=== PATIENT | female | born 1990 | race African-American/Black ===

== ENCOUNTER 2023-04-19 20:03 | Inpatient (IN) | payer MEDICAID, SELFPAY ==
--- NOTE | 2023-04-19 20:10 | PC.NURSE ---
96 Hour Hold Patient Rights have been read to patient and a copy of the same has been given to her. [employer] Carlos Rahman was present during time of reading.
[2023-04-19 20:11] VITALS: BP 129/82; PULSE 100; RESP 18; TEMP 36.3; O2SAT 99
[2023-04-19 20:13] VITALS: BMI 23.9
[2023-04-19 21:25] VITALS: BP 129/82; PULSE 100; RESP 18; TEMP 36.3; O2SAT 99
[2023-04-20 06:00] VITALS: BP 119/78; PULSE 96; RESP 18; TEMP 36.9; O2SAT 100
--- NOTE | 2023-04-20 10:28 | P.NPUHP_ITS ---
Providers/Chief Complaint Admitting Physician: Eduardo Rahman MD Chief Complaint: Psychosis HPI NPU History of Present Illness Rosibel Kwan is a 33 year old female who presented to the Emergency department of an outside hospital on a 96-hour hold secondary to her talking to her self, significant thought blocking. Delusional thoughts about things with electrical currents, endorses being watched through the TV. She was transferred to [facility] and was admitted to the neuropsychiatric unit for definitive treatment of those issues. The patient presents today reporting that she is here because she needs to clear her mind. The patient denies any psychiatric medications. She denies previous psychiatric hospitalization. She has not had outpatient services. She denies previous psychiatric medications. She denies cigarette or tobacco use. She endorses occasional alcohol use. She endorses marijuana use. She denies recent cocaine, methamphetamine, or opiate use. She denies drug rehabilitation, DUI, or drug related charges. She reports that she did not think she needed to be in the hospital, but she is on a 96-hour hold, and reports that maybe it was a misunderstanding. She reports that she has not had previous mental health issues. Otherwise she is a poor historian and seeming to struggle with just about every question asked. Outside hospital was able to speak to mother who reports regular cannabis and methamphetamine use. UDS at outside hospital positive for amphetamines and cannabis. PSYCHIATRIC HISTORY: As above. SUBSTANCE ABUSE HISTORY: As above. FAMILY HISTORY: Denied. DEVELOPMENTAL HISTORY: The patient denies any issues with her mother?s or delivery of her, to her knowledge, learned to walk and talk and met developmental milestones on time. The patient denies speech therapy, learning support, emotional support, or special education classes. PSYCHOSOCIAL HISTORY: The patient reports that her mother and father were together when she was born but did not stay together. She reports that she has two siblings, an older brother and a younger sister, who are also products of that union. She reports that her mother had a son who didn?t make it. She reports that her father had three other kids. She describes her childhood as blessed. She denies emotional, physical, or sexual abuse. She reports there was CPS involvement, and she was taken from the home twice, once for three to four years. She denies nightmares or flashbacks. She denies graduating from high school, just going to school through 7th grade. She reports that she got her GED. She endorses being heterosexual, with her longest relationship being 15 years. She has never been . She reports that she had two sons, who were not biological children, who in a house fire in 2010. She endorses being Druze. She reports she currently lives in an apartment with her mother. LEGAL HISTORY: She reports that she has been to senior living three times, the longest time being six m onths. MEDICAL HISTORY: Denied. The patient denies any known allergies to medications. She reports that she started having her periods in her teens, and they were not problematic. Meds NPU Home Medications Medication Instructions Recorded Confirmed Last Taken Type No Known Home Medications 04/19/23 04/19/23 Unknown History Allergies Allergy/AdvReac Type Severity Reaction Status Date / Time No Known Allergies Allergy Verified 04/19/23 20:13 Mental Status Exam MSE Comments: This is an overweight -Ira[place] female, in hospital scrubs, with limited grooming and eye contact. Blond wig malpositioned on head. No abnormal movements except for psychomotor retardation. Mostly cooperative with exam in mild distress. Speech was decreased rate and volume with clear pauses and thought blocking. Mood described as good; affect subdued. Thought process, disorganized. Thought content: patient denied any suicidal or homicidal ideation; there were no delusions reported but the patient was very distracted and appeared guarded; when asked about auditory or visual hallucinations, the patient responded she thinks those are blessings and abilities. Attention and concentration limited, and memory appeared unreliable, but none were formally tested. Alert and oriented times three. Insight and judgment are limited. Impulse control is limited. Vitals/I&O/Wt Last Vital Signs Temp 98.5 F 04/20/23 06:00 Pulse 96 04/20/23 06:00 Resp 18 04/20/23 06:00 BP 119/78 04/20/23 06:00 Pulse Ox 100 04/20/23 06:00 O2 Del Method Room Air 04/19/23 20:13 Weight last 48 hrs Weight 67.358 kg Weight 67.358 kg A&P Assessment and plan (1) Psychosis: (2) Methamphetamine use disorder, severe: Plan This is a 33-year-old -Ira[place] female who presents denying any issues but is unkempt, with obvious thought blocking and psychosis without any helpful history from her but UDS positive for cannabis and amphetamines and reports of addiction issues via mother at outside hospital. 1. Continue current medication. Will attempt to get her to try an antipsychotic. 2. Encourage individual, group, and milieu therapy. 3. Continue q-15-minute checks for safety. 4. Recommend sober living treatment at the highest level of care to which the patient is willing to commit. Involuntary Hold Information 96 Hour Hold: 96 Hour Involuntary Admission: Yes 96 Hour Hold Ending Date: 04/25/23 96 Hour Hold Ending Time: 20:10 Attestations NPU Medical Necessity Statement*: Inpatient hospitalization is medically necessary and the clinically appropriate intervention, at this time. We will monitor medications and make changes as indicated. Patient will be in the hospital for over two midnights. Likely length of stay is 4-6 days. Coding Level of Care Code Acute Code for Chg Fwd Diagnoses Psychosis F29 Methamphetamine use disorder, severe F15.20
[2023-04-20 14:00] VITALS: BP 117/85; PULSE 98; RESP 16; TEMP 36.6; O2SAT 99
[2023-04-20] MEDS: nicotine 2 mg Gum BUCCAL (15:32)
[2023-04-20 20:19] VITALS: RESP 16
[2023-04-21 06:00] VITALS: BP 108/69; PULSE 95; RESP 16; TEMP 36.9; O2SAT 100
[2023-04-21 14:00] VITALS: BP 102/61; PULSE 99; RESP 16; TEMP 36.8; O2SAT 98
--- NOTE | 2023-04-21 18:23 | P.NPUPN_ITS ---
Subjective NPU Subjective: Patient presented today reporting that is fine and needs no medications. She continues the hyper spiritual spin on her situation. Downplaying the methamphetamine impact on her progress. Denying that the outside hospital noted any thought disorder or any problems. Downplaying the positive drug screen. And speaking very jehovah's witness like with explanation for anything that happened as good versus evil and the fact that God will prevail. Mental Status Exam MSE Comments: This is an overweight -Singapore[place] female, in hospital scrubs, with limited grooming and eye contact. Blond wig malpositioned on head. No abnormal movements except for psychomotor retardation. Mostly cooperative with exam in mild distress. Speech was decreased rate and volume with clear pauses and thought blocking. Mood described as good; affect subdued. Thought process, disorganized. Thought content: patient denied any suicidal or homicidal ideation; there were no delusions reported but the patient was very distracted and appeared guarded; when asked about auditory or visual hallucinations, the patient responded she thinks those are blessings and abilities. Attention and concentration limited, and memory appeared unreliable, but none were formally tested. Alert and oriented times three. Insight and judgment are limited. Impulse control is limited. Vitals/I&O/Wt Last Vital Signs Temp 98.3 F 04/21/23 20:30 Pulse 103 H 04/21/23 20:30 Resp 16 04/21/23 20:30 BP 120/79 04/21/23 20:30 Pulse Ox 100 04/21/23 20:30 O2 Del Method Room Air 04/20/23 14:00 Weight last 48 hrs Weight 67.358 kg A&P Assessment and plan (1) Psychosis: (2) Methamphetamine use disorder, severe: Plan This is a 33-year-old -[place] female who presents denying any issues but is unkempt, with obvious thought blocking and psychosis without any helpful history from her but UDS positive for cannabis and amphetamines and reports of addiction issues via mother at outside hospital. 1. Continue current medication. Will attempt to get her to try an antipsychotic. 2. Encourage individual, group, and milieu therapy. 3. Continue q-15-minute checks for safety. 4. Recommend sober living treatment at the highest level of care to which the patient is willing to commit. Involuntary Hold Information 96 Hour Hold: 96 Hour Involuntary Admission: Yes 96 Hour Hold Ending Date: 04/25/23 96 Hour Hold Ending Time: 20:10 Attestations NPU Medical Necessity Statement*: Inpatient hospitalization is medically necessary and the clinically appropriate intervention, at this time. We will monitor medications and make changes as indicated. Likely length of stay is 4-6 days. Coding Level of Care Code Acute Code for Chg Fwd Diagnoses Psychosis F29 Methamphetamine use disorder, severe F15.20
[2023-04-21 20:30] VITALS: BP 120/79; PULSE 103; RESP 16; TEMP 36.8; O2SAT 100
[2023-04-22 06:00] VITALS: BP 116/77; PULSE 93; RESP 16; TEMP 36.6; O2SAT 100
[2023-04-22 14:00] VITALS: BP 115/72; PULSE 97; RESP 16; TEMP 37.3; O2SAT 100
--- NOTE | 2023-04-22 17:50 | W.PM.NPUPNS ---
Subjective NPU Subjective: Patient presented today continuing to demonstrate 0 insight into her drug use or its sequela. We discussed the risks, benefits and alternatives of starting Abilify and she understood but was resistant to starting the medication as documented in this note. She continues to spend most of the time talking about her blessings and how God can overpower anything. Her explanation for the reasons for any of our interventions were related to conspiracy theories of hospitals and doctors wanting more money. Mental Status Exam MSE Comments: This is an overweight -[place]auritan[place] female, in hospital scrubs, with limited grooming and eye contact. Blond wig malpositioned on head. No abnormal movements except for psychomotor retardation. Mostly cooperative with exam in mild distress. Speech was decreased rate and volume with less pauses and resolving thought blocking. Mood described as good; affect subdued. Thought process, more organized. Thought content: patient denied any suicidal or homicidal ideation; there were no delusions reported but the patient appeared guarded; when asked about auditory or visual hallucinations, the patient responded she thinks those are blessings and abilities. Attention and concentration limited, and memory appeared unreliable, but none were formally tested. Alert and oriented times three. Insight and judgment are limited. Impulse control is limited. Vitals/I&O/Wt Last Vital Signs Temp 98.8 F 04/22/23 20:35 Pulse 83 04/22/23 20:35 Resp 26 H 04/22/23 20:35 BP 121/75 04/22/23 20:35 Pulse Ox 100 04/22/23 20:35 O2 Del Method Room Air 04/22/23 20:35 A&P Assessment and plan (1) Psychosis: (2) Methamphetamine use disorder, severe: Plan This is a 33-year-old -[place] female who presents denying any issues but is unkempt, with obvious thought blocking and psychosis without any helpful history from her but UDS positive for cannabis and amphetamines and reports of addiction issues via mother at outside hospital. 1. Continue current medication. Offer Abilify 10 milligrams p.o. daily. 2. Encourage individual, group, and milieu therapy. 3. Continue q-15-minute checks for safety. 4. Recommend sober living treatment at the highest level of care to which the patient is willing to commit. Involuntary Hold Information 96 Hour Hold: 96 Hour Involuntary Admission: Yes 96 Hour Hold Ending Date: 04/25/23 96 Hour Hold Ending Time: 20:10 Attestations NPU Medical Necessity Statement*: Inpatient hospitalization is medically necessary and the clinically appropriate intervention, at this time. We will monitor medications and make changes as indicated. Likely length of stay is 4-6 days. Coding Level of Care Code Acute Code for Chg Fwd Diagnoses Psychosis F29 Methamphetamine use disorder, severe F15.20
[2023-04-22 20:35] VITALS: BP 121/75; PULSE 83; RESP 26; TEMP 37.1; O2SAT 100
[2023-04-23 06:00] VITALS: BP 105/75; PULSE 87; RESP 16; O2SAT 98
[2023-04-23] MEDS: ARIPiprazole 10 mg Tablet PO (09:47)
--- NOTE | 2023-04-23 11:20 | W.PM.NPUPNS ---
Subjective NPU Subjective: Patient presented today continuing to be somewhat disorganized per staff and continued to be quite religiously preoccupied. She currently oral Abilify with significant resistance. She reported later that there was no effect and she is slowly herself without any changes and denied any side effects. We discussed the fact that based on her psychosis and poor functioning that a 21 day hold was initiated. She was not happy about this. Mental Status Exam MSE Comments: This is an overweight -Bhut[place] female, in hospital scrubs, with limited grooming and eye contact. Blond wig malpositioned on head. No abnormal movements except for psychomotor retardation. Mostly cooperative with exam in mild distress. Speech was decreased rate and volume with less pauses and resolving thought blocking. Mood described as good; affect subdued. Thought process, more organized. Thought content: patient denied any suicidal or homicidal ideation; there were no delusions reported but the patient appeared guarded; when asked about auditory or visual hallucinations, the patient responded she thinks those are blessings and abilities. Attention and concentration limited, and memory appeared unreliable, but none were formally tested. Alert and oriented times three. Insight and judgment are limited. Impulse control is limited. Vitals/I&O/Wt Last Vital Signs Temp 98.8 F 04/22/23 20:35 Pulse 87 04/23/23 06:00 Resp 16 04/23/23 06:00 BP 105/75 04/23/23 06:00 Pulse Ox 98 04/23/23 06:00 O2 Del Method Room Air 04/23/23 06:00 A&P Assessment and plan (1) Psychosis: (2) Methamphetamine use disorder, severe: Plan This is a 33-year-old -Bhut[place] female who presents denying any issues but is unkempt, with obvious thought blocking and psychosis without any helpful history from her but UDS positive for cannabis and amphetamines and reports of addiction issues via mother at outside hospital. 1. Continue current medication. Started Abilify 10 mg p.o. every morning reluctantly. 2. Encourage individual, group, and milieu therapy. 3. Continue q-15-minute checks for safety. 4. Recommend sober living treatment at the highest level of care to which the patient is willing to commit. 5. Filed 21-day-old paperwork. Involuntary Hold Information 96 Hour Hold: 96 Hour Involuntary Admission: Yes 96 Hour Hold Ending Date: 04/25/23 96 Hour Hold Ending Time: 20:10 Attestations NPU Medical Necessity Statement*: Inpatient hospitalization is medically necessary and the clinically appropriate intervention, at this time. We will monitor medications and make changes as indicated. Likely length of stay is 5-7 days. Coding Level of Care Code Acute Code for Chg Fwd Diagnoses Psychosis F29 Methamphetamine use disorder, severe F15.20
[2023-04-23 14:00] VITALS: BP 122/71; PULSE 108; RESP 17; TEMP 36.9; O2SAT 98
[2023-04-23 20:38] VITALS: BP 136/72; PULSE 88; RESP 16; TEMP 37; O2SAT 100
[2023-04-24 06:00] VITALS: BP 105/61; PULSE 84; RESP 16; TEMP 37; O2SAT 99
[2023-04-24] MEDS: ARIPiprazole 10 mg Tablet PO (09:19)
[2023-04-24 14:00] VITALS: BP 109/68; PULSE 108; RESP 16; TEMP 36.6; O2SAT 98
--- NOTE | 2023-04-24 17:04 | P.NPUPN_ITS ---
Subjective NPU Subjective: Patient is currently reluctantly taking medication and presents today reporting that she is better. She continued to have some thought disorder and oddness per staff. She reports that she did speak with her mother but reported she did not have her 's phone number. She reported it be okay for our treatment team to reach out to her mother to get her take on how the patient is doing. Continues to deny a need for the medication. Mental Status Exam MSE Comments: This is an overweight -[place]igerian female, in hospital scrubs, with limited grooming and eye contact. Blond wig malpositioned on head. No abnormal movements except for psychomotor retardation. Mostly cooperative with exam in mild distress. Speech was decreased rate and volume with less pauses and resolving thought blocking. Mood described as good; affect subdued. Thought process, more organized. Thought content: patient denied any suicidal or homicidal ideation; there were no delusions reported but the patient appeared guarded; when asked about auditory or visual hallucinations, the patient responded she thinks those are blessings and abilities. Attention and concentration limited, and memory appeared unreliable, but none were formally tested. Alert and oriented times three. Insight and judgment are limited. Impulse control is limited. Vitals/I&O/Wt Last Vital Signs Temp 97.6 F 04/24/23 20:23 Pulse 87 04/24/23 20:23 Resp 18 04/24/23 20:23 BP 128/88 04/24/23 20:23 Pulse Ox 100 04/24/23 20:23 O2 Del Method Room Air 04/24/23 20:23 A&P Assessment and plan (1) Psychosis: (2) Methamphetamine use disorder, severe: Plan This is a 33-year-old -Nigerian female who presents denying any issues but is unkempt, with obvious thought blocking and psychosis without any helpful history from her but UDS positive for cannabis and amphetamines and reports of addiction issues via mother at outside hospital. 1. Continue current medication. Started Abilify 10 mg p.o. every morning reluctantly. 2. Encourage individual, group, and milieu therapy. 3. Continue q-15-minute checks for safety. 4. Recommend sober living treatment at the highest level of care to which the patient is willing to commit. 5. Filed 21-day-old paperwork. Involuntary Hold Information 96 Hour Hold: 96 Hour Involuntary Admission: Yes 96 Hour Hold Ending Date: 04/25/23 96 Hour Hold Ending Time: 20:10 Attestations NPU Medical Necessity Statement*: Inpatient hospitalization is medically necessary and the clinically appropriate intervention, at this time. We will monitor medications and make changes as indicated. Likely length of stay is 4-6 days. Coding Level of Care Code Acute Code for g Fwd Diagnoses Psychosis F29 Methamphetamine use disorder, severe F15.20
[2023-04-24 20:23] VITALS: BP 128/88; PULSE 87; RESP 18; TEMP 36.4; O2SAT 100
[2023-04-25 06:00] VITALS: BP 136/74; PULSE 76; RESP 18; TEMP 36.4; O2SAT 97
[2023-04-25] MEDS: ARIPiprazole 10 mg Tablet PO (09:54)
--- NOTE | 2023-04-25 13:01 | W.PM.NPUPNS ---
Subjective NPU Subjective: Patient is currently reluctantly taking medication and presents today reporting that she doesn't need it as she has god She continued to have some thought disorder and oddness per staff. She reports that her mother and her have an OK relationship. She did not respond to what she feels about mom suggesting she has a drug problem and needs rehab. Continues to deny a need for the medication or any side effects. Mental Status Exam MSE Comments: This is an overweight -[place] female, in hospital scrubs, with limited grooming and eye contact. Blond wig malpositioned on head. No abnormal movements except for psychomotor retardation. Mostly cooperative with exam in mild distress. Speech was decreased rate and volume with less pauses and resolving thought blocking. Mood described as good; affect subdued. Thought process, more organized. Thought content: patient denied any suicidal or homicidal ideation; there were no delusions reported but the patient appeared guarded; when asked about auditory or visual hallucinations, the patient responded she thinks those are blessings and abilities. Attention and concentration limited, and memory appeared unreliable, but none were formally tested. Alert and oriented times three. Insight and judgment are limited. Impulse control is limited. Vitals/I&O/Wt Last Vital Signs Temp 97.6 F 04/25/23 06:00 Pulse 76 04/25/23 06:00 Resp 18 04/25/23 06:00 BP 136/74 04/25/23 06:00 Pulse Ox 97 04/25/23 06:00 O2 Del Method Room Air 04/25/23 06:00 A&P Assessment and plan (1) Psychosis: (2) Methamphetamine use disorder, severe: Plan This is a 33-year-old -[place] female who presents denying any issues but is unkempt, with obvious thought blocking and psychosis without any helpful history from her but UDS positive for cannabis and amphetamines and reports of addiction issues via mother at outside hospital. 1. Continue current medication. Started Abilify 10 mg p.o. every morning reluctantly.increase to 15 mg. 2. Encourage individual, group, and milieu therapy. 3. Continue q-15-minute checks for safety. 4. Recommend sober living treatment at the highest level of care to which the patient is willing to commit. 5. Filed 21-day-old paperwork. Involuntary Hold Information 96 Hour Hold: 96 Hour Involuntary Admission: Yes 96 Hour Hold Ending Date: 04/25/23 96 Hour Hold Ending Time: 20:10 Attestations NPU Medical Necessity Statement*: Inpatient hospitalization is medically necessary and the clinically appropriate intervention, at this time. We will monitor medications and make changes as indicated. Likely length of stay is 5-7 days. Coding Level of Care Code Acute Code for g Fwd Diagnoses Psychosis F29 Methamphetamine use disorder, severe F15.20
[2023-04-25 14:00] VITALS: BP 128/77; PULSE 100; RESP 16; TEMP 36.6; O2SAT 97
[2023-04-25 20:39] VITALS: BP 118/78; PULSE 96; RESP 18; TEMP 36.7; O2SAT 99
[2023-04-26 06:00] VITALS: BP 114/77; PULSE 113; RESP 16; TEMP 36.8; O2SAT 98
[2023-04-26] MEDS: ARIPiprazole 10 mg Tablet 15 MG PO (09:16)
[2023-04-26 14:00] VITALS: BP 130/78; PULSE 99; RESP 17; TEMP 36.7; O2SAT 100
--- NOTE | 2023-04-26 15:48 | W.PM.NPUPNS ---
Subjective NPU Subjective: Patient is a 33-year-old -Citizen Of [place] female admitted with active delusions possibly in the context of the use of methamphetamine who remains on Abilify at this time. She continued to report that God was on her side. She reported having a variety of different plans for the future stating that she was in the habit of engaging in designs stating that she has been designing islands but was unable to elaborate on this concept other than she had been working on a tool that allows her to convert her dreams and thoughts into a realistic physical concept. She stated that she was suspicious about sharing her ideas with the senior underwriter of this note. She had reported that she had never been hospitalized for any medical problems and stated that she was here because her mother had wanted her to get help. She had continue to report that she felt ready to return home but was unable to provide any details regarding where she is and how she intended on proceeding with her future plans. Mental Status Exam MSE Comments: This is an overweight -Citizen [place] female, in hospital scrubs, with limited grooming and eye contact who was wearing a blond wig. No abnormal movements except for psychomotor retardation. Mostly cooperative with exam in mild distress. Speech was abnormal in rate and normal in volume. Mood described as great; affect subdued and mood incongruent. Thought process, superficially organized. Thought content: patient denied any suicidal or homicidal ideation; there was some overvalued ideas and grandiosity, with ideas of reference appreciated. Attention and concentration limited, and memory appeared unreliable, but none were formally tested. Alert and oriented times three. Insight and judgment are limited. Impulse control is limited. Vitals/I&O/Wt Last Vital Signs Temp 98.0 F 04/26/23 14:00 Pulse 99 04/26/23 14:00 Resp 17 04/26/23 14:00 BP 130/78 04/26/23 14:00 Pulse Ox 100 04/26/23 14:00 O2 Del Method Room Air 04/25/23 14:00 A&P Assessment and plan (1) Psychosis: (2) Methamphetamine use disorder, severe: Plan This is a 33-year-old -Citizen Of [place] female who presents denying any issues but is unkempt, with obvious thought blocking and psychosis without any helpful history from her but UDS positive for cannabis and amphetamines and reports of addiction issues via mother at outside hospital. 1. Continue current medication. Increase Abilify to 15mg daily. 2. Encourage individual, group, and milieu therapy. 3. Continue q-15-minute checks for safety. 4. Recommend sober living treatment at the highest level of care to which the patient is willing to commit. 5. Filed 21-day-old paperwork. Involuntary Hold Information 96 Hour Hold: 96 Hour Involuntary Admission: Yes 96 Hour Hold Ending Date: 04/25/23 96 Hour Hold Ending Time: 20:10 Attestations NPU Medical Necessity Statement*: Inpatient hospitalization is medically necessary and the clinically appropriate intervention, at this time. We will monitor medications and make changes as indicated. Likely length of stay is 5-7 days. Coding Level of Care Code Acute Code for [facility] Diagnoses Psychosis F29 Methamphetamine use disorder, severe F15.20
[2023-04-26 19:48] VITALS: BP 131/86; PULSE 97; RESP 17; TEMP 37.1; O2SAT 100
[2023-04-27 06:00] VITALS: BP 125/81; PULSE 104; RESP 18; TEMP 36.7; O2SAT 100; BMI 27.5
[2023-04-27] MEDS: ARIPiprazole 10 mg Tablet 15 MG PO (08:13)
[2023-04-27 14:00] VITALS: BP 126/79; PULSE 91; RESP 17; TEMP 36.8; O2SAT 100
--- NOTE | 2023-04-27 14:59 | W.PM.NPUPNS ---
Subjective NPU Subjective: Patient is a 33-year-old -[place] female admitted with active delusions possibly in the context of the use of methamphetamine who remains on Abilify at this time. She reported no side effects from her medication. She stated that she was managing to make it through this time with prayer and time. She continued to struggle with providing any clear history regarding how she had been hospitalized. She continued to isolate herself on the milieu. She reported still being worthy of God and stated that he would help her with all of her problems. Mental Status Exam MSE Comments: This is an overweight -[place] female, in hospital scrubs, with limited grooming and eye contact who was wearing a blond wig. No abnormal movements except for psychomotor retardation. She was guarded with exam in mild distress. Speech was normal in rate and normal in volume. Mood described as good. Her affect was subdued and mood incongruent. Thought process, superficially and vague. Thought content: patient denied any suicidal or homicidal ideation; there was overvalued ideas and grandiosity, with ideas of reference appreciated. Attention and concentration limited, and memory appeared unreliable, but none were formally tested. Alert and oriented times three. Insight and judgment are limited. Impulse control is limited. Vitals/I&O/Wt Last Vital Signs Temp 98.3 F 04/27/23 14:00 Pulse 91 04/27/23 14:00 Resp 17 04/27/23 14:00 BP 126/79 04/27/23 14:00 Pulse Ox 100 04/27/23 14:00 O2 Del Method Room Air 04/25/23 14:00 A&P Assessment and plan (1) Psychosis: (2) Methamphetamine use disorder, severe: Plan This is a 33-year-old -[place] female who presents denying any issues but is unkempt, with obvious thought blocking and psychosis without any helpful history from her but UDS positive for cannabis and amphetamines and reports of addiction issues via mother at outside hospital. 1. Continue current medication. Continue Abilify 15mg daily. 2. Encourage individual, group, and milieu therapy. 3. Continue q-15-minute checks for safety. 4. Recommend sober living treatment at the highest level of care to which the patient is willing to commit. 5. Filed 21-day-old paperwork. Involuntary Hold Information 96 Hour Hold: 96 Hour Involuntary Admission: Yes 96 Hour Hold Ending Date: 04/25/23 96 Hour Hold Ending Time: 20:10 Attestations NPU Medical Necessity Statement*: Inpatient hospitalization is medically necessary and the clinically appropriate intervention, at this time. We will monitor medications and make changes as indicated. Likely length of stay is 5-7 days. Coding Level of Care Code Acute Code for g Fwd Diagnoses Psychosis F29 Methamphetamine use disorder, severe F15.20
[2023-04-27] MEDS: nicotine 4 mg lozenge MUCOUS MEM (17:28)
[2023-04-27] MEDS: trazodone 50 mg Tablet PO (20:52)
[2023-04-27] MEDS: acetaminophen 325 mg Tablet 650 MG PO (20:52)
[2023-04-27 21:26] VITALS: BP 132/80; PULSE 101; RESP 16; TEMP 36.9; O2SAT 99
[2023-04-28 06:00] VITALS: BP 123/78; PULSE 97; RESP 18; TEMP 36.8; O2SAT 99
[2023-04-28] MEDS: ARIPiprazole 10 mg Tablet 15 MG PO (10:05)
[2023-04-28] MEDS: nicotine 2 mg Gum BUCCAL (11:40)
[2023-04-28 14:00] VITALS: BP 111/70; PULSE 96; RESP 17; TEMP 36.7; O2SAT 100
--- NOTE | 2023-04-28 14:48 | PC.NURSE ---
off unit for court
--- NOTE | 2023-04-28 18:09 | P.NPUPN_ITS ---
Subjective NPU Subjective: Patient is a 33-year-old -[place] female admitted with active delusions possibly in the context of the use of methamphetamine who remains on Abilify at this time. The patient was placed on a 21-day hold after court hearing today. She reported no side effects from her medications. She continued to report that she had a variety of ideas and continue to report that God can solve her problems and she was leaving it up to God's will. She stated that she had felt that she could be helped by these medications but stated that she still remained unsure about whether she could take these medications when she went home. She had reported no methamphetamine use despite clear evidence of her use both corroborated by the mother and by drug screens prior to arrival here. The patient had continued to spend some time in her room writing excessively with words that appear to time flowing but relatively unrelated in meaning. Mental Status Exam MSE Comments: This is an overweight -[place] female, in hospital scrubs, with limited grooming and eye contact who was wearing a blond wig. No abnormal movements except for psychomotor retardation. She was guarded with exam but appeared in no acute distress. Speech was normal in rate and normal in volume. Mood described as okay. Her affect was subdued and mood incongruent. Thought process, superficially and vague. Thought content: patient denied any suicidal or homicidal ideation; there was overvalued ideas and grandiosity, with ideas of reference appreciated. Attention and concentration limited, and memory appeared unreliable, but none were formally tested. Alert and oriented times three. Insight and judgment are limited. Impulse control is limited. Vitals/I&O/Wt Last Vital Signs Temp 98.1 F 04/28/23 14:00 Pulse 96 04/28/23 14:00 Resp 17 04/28/23 14:00 BP 111/70 04/28/23 14:00 Pulse Ox 100 04/28/23 14:00 O2 Del Method Room Air 04/28/23 06:00 Weight last 48 hrs Weight 72.802 kg A&P Assessment and plan (1) Psychosis: (2) Methamphetamine use disorder, severe: Plan This is a 33-year-old -[place] female who presents denying any issues but is unkempt, with obvious thought blocking and psychosis without any helpful history from her but UDS positive for cannabis and amphetamines and reports of addiction issues via mother at outside hospital. 1. Continue current medication. Continue Abilify 15mg daily. There has been slight improvement so far compared to initial hospitalization but she remains somewhat psychotic with minimal insight. 2. Encourage individual, group, and milieu therapy. 3. Continue q-15-minute checks for safety. 4. Recommend sober living treatment at the highest level of care to which the patient is willing to commit. 5. Patient on 21-day hold currently. Involuntary Hold Information 96 Hour Hold: 96 Hour Involuntary Admission: Yes 96 Hour Hold Ending Date: 04/25/23 96 Hour Hold Ending Time: 20:10 Attestations NPU Medical Necessity Statement*: Inpatient hospitalization is medically necessary and the clinically appropriate intervention, at this time. We will monitor medications and make changes as indicated. Likely length of stay is 5-7 days. Coding Level of Care Code Acute Code for [facility] Fwd Diagnoses Psychosis F29 Methamphetamine use disorder, severe F15.20
[2023-04-28 19:38] VITALS: BP 126/77; PULSE 103; RESP 18; TEMP 37; O2SAT 99
[2023-04-29 06:00] VITALS: BP 118/80; PULSE 99; RESP 17; TEMP 37.2; O2SAT 100
[2023-04-29] MEDS: ARIPiprazole 10 mg Tablet 15 MG PO (09:52)
--- NOTE | 2023-04-29 10:14 | PC.NURSE ---
Patient appearing quite delusional. She continues to write multiple notes to Dr. Fuentes and give them to this RN to give to him. Patient also told this nurse she believes the temperature of the water in the shared patient bathroom is controlled by her mind.
[2023-04-29] MEDS: nicotine 2 mg Gum BUCCAL (10:57)
[2023-04-29 14:00] VITALS: BP 124/82; PULSE 112; RESP 16; TEMP 36.9; O2SAT 98
--- NOTE | 2023-04-29 16:43 | P.NPUPN_ITS ---
Subjective NPU Subjective: Patient is a 33-year-old -[place] female admitted with active delusions possibly in the context of the use of methamphetamine who remains on Abilify at this time. The patient had reported that she continued to spend her time writing and working on her chakras. She had provided a note to the rewriter of this note that was a long manifest though that expressed the importance of God and how she was speaking for God while being appreciative of all the support from her family. She had continued to report that she spent much of her day thinking about ideas supporting her skills at helping others. She had reported this time having special abilities. She reported again that she did not need help with managing abuse of methamphetamines as she stated this was in God's plan. Mental Status Exam MSE Comments: This is an overweight -[place] female, in hospital scrubs, with limited grooming and eye contact who was wearing a blond wig. No abnormal movements with no psychomotor agitation or psychomotor retardation. She remained guarded with exam but appeared in no acute distress. Speech was normal in rate and normal in volume. Mood described as okay. Her affect was subdued and mood incongruent. Thought process was superficially and vague. Thought content: patient denied any suicidal or homicidal ideation; there was overvalued ideas and continued grandiosity, with ideas of reference appreciated. Attention and concentration limited, and memory appeared unreliable, but none were formally tested. She was alert and oriented times three. Insight is limited and judgment is poor. Impulse control is limited. Vitals/I&O/Wt Last Vital Signs Temp 98.4 F 04/29/23 14:00 Pulse 112 H 04/29/23 14:00 Resp 16 04/29/23 14:00 BP 124/82 04/29/23 14:00 Pulse Ox 98 04/29/23 14:00 O2 Del Method Room Air 04/29/23 14:00 A&P Assessment and plan (1) Psychosis: (2) Methamphetamine use disorder, severe: Plan This is a 33-year-old -[place] female who presents denying any issues but is unkempt, with obvious thought blocking and psychosis without any helpful history from her but UDS positive for cannabis and amphetamines and reports of addiction issues via mother at outside hospital. 1. Continue current medication. Increase Abilify to 20 mg daily today. There has been slight improvement so far compared to initial hospitalization but she remains somewhat psychotic with minimal insight. 2. Encourage individual, group, and milieu therapy. 3. Continue q-15-minute checks for safety. 4. Recommend sober living treatment at the highest level of care to which the patient is willing to commit. 5. Patient on 21-day hold currently. Involuntary Hold Information 96 Hour Hold: 96 Hour Involuntary Admission: Yes 96 Hour Hold Ending Date: 04/25/23 96 Hour Hold Ending Time: 20:10 Attestations NPU Medical Necessity Statement*: Inpatient hospitalization is medically necessary and the clinically appropriate intervention, at this time. We will monitor medications and make changes as indicated. Her likely length of stay is 5-7 days. Coding Level of Care Code Acute Code for [facility] Diagnoses Psychosis F29 Methamphetamine use disorder, severe F15.20
[2023-04-29 19:41] VITALS: BP 116/69; PULSE 96; RESP 18; TEMP 36.9; O2SAT 100
[2023-04-29] MEDS: trazodone 50 mg Tablet PO (20:57)
[2023-04-30 06:00] VITALS: BP 102/70; PULSE 96; RESP 16; TEMP 36.9; O2SAT 98
[2023-04-30] MEDS: ARIPiprazole 10 mg Tablet 20 MG PO (08:33)
[2023-04-30] MEDS: nicotine 2 mg Gum BUCCAL (08:57)
[2023-04-30 14:00] VITALS: BP 132/80; PULSE 102; RESP 16; TEMP 36.8; O2SAT 100
--- NOTE | 2023-04-30 17:39 | W.PM.NPUPNS ---
Subjective NPU Subjective: Patient is a 33-year-old -[place] female admitted with active delusions possibly in the context of the use of methamphetamine who remains on Abilify at this time. Patient had continued to engage in fantastic ideas of having various interest in being able to engage in art and technology that appeared to be without any clear focused plan. She had reported that she wished to go home soon. She had stated that she remained hesitant about taking these medications when she went home. She had stated that she continue to focus on her chakras. 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 She had reported having some legal troubles recently she reports that she would be agreeable to following up with an outpatient psychiatrist to manage her medications. Mental Status Exam MSE Comments: This is an overweight -[place] female, in hospital scrubs, with limited grooming and eye contact who was wearing a blond wig. No abnormal movements with no psychomotor agitation or psychomotor retardation. She was less guarded with the exam and appeared in no acute distress. Speech was normal in rate and normal in volume. Mood described as good. Her affect was pleasant and superficial. Thought process was superficially and vague. Thought content: patient denied any suicidal or homicidal ideation; there was overvalued ideas and continued grandiosity, with significant magical thinking. Attention and concentration limited, and memory appeared unreliable, but none were formally tested. She was alert and oriented times three. Insight is limited and judgment is poor. Impulse control is limited. Vitals/I&O/Wt Last Vital Signs Temp 98.3 F 04/30/23 14:00 Pulse 102 H 04/30/23 14:00 Resp 16 04/30/23 14:00 BP 132/80 04/30/23 14:00 Pulse Ox 100 04/30/23 14:00 O2 Del Method Room Air 04/30/23 14:00 A&P Assessment and plan (1) Psychosis: (2) Methamphetamine use disorder, severe: Plan This is a 33-year-old -[place] female who presents denying any issues but is unkempt, with obvious thought blocking and psychosis without any helpful history from her but UDS positive for cannabis and amphetamines and reports of addiction issues via mother at outside hospital. 1. Continue current medication. Continue Abilify at 20 mg daily. There has been some improvement so far compared to initial hospitalization but she remains somewhat psychotic with minimal insight. 2. Encourage individual, group, and milieu therapy. 3. Continue q-15-minute checks for safety. 4. Recommend sober living treatment at the highest level of care to which the patient is willing to commit. 5. Patient on 21-day hold currently. Involuntary Hold Information 96 Hour Hold: 96 Hour Involuntary Admission: Yes 96 Hour Hold Ending Date: 04/25/23 96 Hour Hold Ending Time: 20:10 Attestations NPU Medical Necessity Statement*: Inpatient hospitalization is medically necessary and the clinically appropriate intervention, at this time. We will monitor medications and make changes as indicated. Her likely length of stay is 5-7 days. Coding Level of Care Code Acute Code for [facility] Diagnoses Psychosis F29 Methamphetamine use disorder, severe F15.20
[2023-04-30 19:37] VITALS: BP 133/79; PULSE 101; RESP 18; TEMP 36.9; O2SAT 100
[2023-05-01 06:00] VITALS: BP 113/74; PULSE 105; RESP 17; TEMP 36.6; O2SAT 100
[2023-05-01] MEDS: ARIPiprazole 10 mg Tablet 20 MG PO (08:42)
[2023-05-01] MEDS: nicotine 4 mg lozenge MUCOUS MEM (08:42)
[2023-05-01 14:00] VITALS: BP 129/81; PULSE 105; RESP 16; TEMP 36.6; O2SAT 98
--- NOTE | 2023-05-01 16:47 | W.PM.NPUPNS ---
Subjective NPU Subjective: Patient is a 33-year-old -[place] female admitted with active delusions possibly in the context of the use of methamphetamine who remains on Abilify at this time. Patient had been somewhat isolative on the milieu. She had reported that she was feeling okay. She appeared less expansive in regards to her orthodoxy ideas and belief in God. She had reported a desire to return home soon. She had stated that the medications had helped her. She had been able to attend groups and reported good motivation to stay out of the hospital. She had reported no side effects from her medications. Mental Status Exam MSE Comments: This is an overweight -[place] female, in hospital scrubs, with limited grooming and eye contact who was wearing a blond wig. No abnormal movements with no psychomotor agitation or psychomotor retardation appreciated. She was less vague during the interview. Speech was normal in rate and normal in volume. Mood described as good. Her affect was pleasant and superficial. Thought process was superficially and vague. Thought content: patient denied any suicidal or homicidal ideation; there was overvalued ideas and continued grandiosity, with significant magical thinking. Attention and concentration limited, and memory appeared unreliable, but none were formally tested. She was alert and oriented times three. Insight is limited and judgment is poor. Impulse control is limited. Vitals/I&O/Wt Last Vital Signs Temp 98 F 05/01/23 14:00 Pulse 105 H 05/01/23 14:00 Resp 16 05/01/23 14:00 BP 129/81 05/01/23 14:00 Pulse Ox 98 05/01/23 14:00 O2 Del Method Room Air 05/01/23 14:00 A&P Assessment and plan (1) Psychosis: (2) Methamphetamine use disorder, severe: Plan This is a 33-year-old -[place] female who presents denying any issues but is unkempt, with obvious thought blocking and psychosis without any helpful history from her but UDS positive for cannabis and amphetamines and reports of addiction issues via mother at outside hospital. 1. Continue current medication. Continue Abilify at 20 mg daily. Patient continues to show some progress with less overt delusions and diminished grandiosity noted. 2. Encourage individual, group, and milieu therapy. 3. Continue q-15-minute checks for safety. 4. Recommend sober living treatment at the highest level of care to which the patient is willing to commit. 5. Patient on 21-day hold currently. Involuntary Hold Information 96 Hour Hold: 96 Hour Involuntary Admission: Yes 96 Hour Hold Ending Date: 04/25/23 96 Hour Hold Ending Time: 20:10 Attestations NPU Medical Necessity Statement*: Inpatient hospitalization is medically necessary and the clinically appropriate intervention, at this time. We will monitor medications and make changes as indicated. Her likely length of stay is 5-7 days. Coding Level of Care Code Acute Code for g Fwd Diagnoses Psychosis F29 Methamphetamine use disorder, severe F15.20
[2023-05-01 20:24] VITALS: BP 111/79; PULSE 99; RESP 18; TEMP 36.7; O2SAT 95
[2023-05-02 06:00] VITALS: BP 128/77; PULSE 101; RESP 17; TEMP 37; O2SAT 98
[2023-05-02] MEDS: ARIPiprazole 10 mg Tablet 20 MG PO (08:25)
[2023-05-02] MEDS: nicotine 2 mg Gum BUCCAL (10:04)
[2023-05-02 14:00] VITALS: BP 122/75; PULSE 108; RESP 16; TEMP 36.6; O2SAT 100
--- NOTE | 2023-05-02 15:02 | W.PM.NPUPNS ---
Subjective NPU Subjective: Patient is a 33-year-old -[place] female admitted with active delusions possibly in the context of the use of methamphetamine who remains on Abilify at this time. She has been pleasant and cooperative here on the unit. 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 She had continue to minimize the use of illicit substances. She had reported no side effects from this medication. She reported good sleep. She was able to attend groups and was pleasant and polite during the interview. 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 She had reported that she would likely go to live with her mother when she would be discharged. She did express that she would attempt to continue with her medications Mental Status Exam MSE Comments: This is an overweight -[place] female, in hospital scrubs, with limited grooming and eye contact . No abnormal movements with no psychomotor agitation or psychomotor retardation appreciated. She was superficial during the interview and less guarded. Speech was normal in rate and normal in volume. Mood described as good. Her affect was pleasant. Thought process was more linear and logical. Thought content: patient denied any suicidal or homicidal ideation; there was continued evidence of overvalued ideas and continued grandiosity. Attention and concentration was limited, and memory appeared unreliable, but none were formally tested. She was alert and oriented times three. Insight is limited and judgment is poor. Impulse control is limited. Vitals/I&O/Wt Last Vital Signs Temp 98 F 05/02/23 14:00 Pulse 108 H 05/02/23 14:00 Resp 16 05/02/23 14:00 BP 122/75 05/02/23 14:00 Pulse Ox 100 05/02/23 14:00 O2 Del Method Room Air 05/02/23 14:00 A&P Assessment and plan (1) Psychosis: (2) Methamphetamine use disorder, severe: Plan This is a 33-year-old -[place] female who presents denying any issues but is unkempt, with obvious thought blocking and psychosis without any helpful history from her but UDS positive for cannabis and amphetamines and reports of addiction issues via mother at outside hospital. 1. Continue current medication. Continue Abilify at 20 mg daily. Patient continues to show some progress with less overt delusions and diminished grandiosity noted. 2. Encourage individual, group, and milieu therapy. 3. Continue q-15-minute checks for safety. 4. Recommend sober living treatment at the highest level of care to which the patient is willing to commit. 5. Patient on 21-day hold currently. Involuntary Hold Information 96 Hour Hold: 96 Hour Involuntary Admission: Yes 96 Hour Hold Ending Date: 04/25/23 96 Hour Hold Ending Time: 20:10 Attestations NPU Medical Necessity Statement*: Inpatient hospitalization is medically necessary and the clinically appropriate intervention, at this time. We will monitor medications and make changes as indicated. Her likely length of stay is 5-7 days. Coding Level of Care Code Acute Code for [facility] Diagnoses Psychosis F29 Methamphetamine use disorder, severe F15.20
[2023-05-02 21:59] VITALS: BP 125/79; PULSE 108; RESP 16; TEMP 36.9; O2SAT 100
[2023-05-03 06:00] VITALS: BP 112/76; PULSE 92; RESP 18; TEMP 36.7; O2SAT 100
[2023-05-03] MEDS: ARIPiprazole 10 mg Tablet 20 MG PO (08:57)
[2023-05-03] MEDS: nicotine 2 mg Gum BUCCAL (09:41)
[2023-05-03 14:00] VITALS: BP 110/65; PULSE 106; RESP 17; TEMP 37; O2SAT 100
--- NOTE | 2023-05-03 14:55 | NPU.GN ---
[facility] Unit Group Topic:painting General Mood of Group participated in group, painting several pictures while listening to music and talking with the group
--- NOTE | 2023-05-03 15:00 | W.PM.NPUPNS ---
Subjective NPU Subjective: Patient is a 33-year-old -[place] female admitted with active delusions possibly in the context of the use of methamphetamine who remains on Abilify at this time. She reported no side effects from her medication. She r she had reported she would like to return to live with her mother when discharged. She reported adequate sleep. She reported that she would like to continue this medication. She had been able to attend groups and did not appear preoccupied by her thoughts. She had been engaging less writing and less preoccupation about her infinite options when leaving the hospital. She had acknowledged today that she may have used methamphetamine but reported that her mother had exaggerated in regards to the frequency of use. Mental Status Exam MSE Comments: This is an overweight -[place] female, in hospital scrubs, with improved grooming and improvedd eye contact . No abnormal movements with no psychomotor agitation or psychomotor retardation appreciated. She was superficial during the interview and less guarded. Speech was normal in rate and normal in volume. Mood described as good. Her affect was pleasant. Thought process was more linear and logical. Thought content: patient denied any suicidal or homicidal ideation; there was continued evidence of overvalued ideas and continued decline grandiosity. Attention and concentration was limited, and memory appeared limited although, none were formally tested. She was alert and oriented times three. Insight is limited and judgment is poor. Impulse control is limited. Vitals/I&O/Wt Last Vital Signs Temp 98.1 F 05/03/23 06:00 Pulse 92 05/03/23 06:00 Resp 18 05/03/23 06:00 BP 112/76 05/03/23 06:00 Pulse Ox 100 05/03/23 06:00 O2 Del Method Room Air 05/02/23 14:00 A&P Assessment and plan (1) Psychosis: (2) Methamphetamine use disorder, severe: Plan This is a 33-year-old -[place] female who presents denying any issues but is unkempt, with obvious thought blocking and psychosis without any helpful history from her but UDS positive for cannabis and amphetamines and reports of addiction issues via mother at outside hospital. 1. Continue current medication. Continue Abilify at 20 mg daily. Patient continues to show some progress with less overt delusions and diminished grandiosity noted. Patient continuing to refuse the IM abilify at this time. 2. Encourage individual, group, and milieu therapy. 3. Continue q-15-minute checks for safety. 4. Recommend sober living treatment at the highest level of care to which the patient is willing to commit. 5. Patient on 21-day hold currently. Involuntary Hold Information 96 Hour Hold: 96 Hour Involuntary Admission: Yes 96 Hour Hold Ending Date: 04/25/23 96 Hour Hold Ending Time: 20:10 Attestations NPU Medical Necessity Statement*: Inpatient hospitalization is medically necessary and the clinically appropriate intervention, at this time. We will monitor medications and make changes as indicated. Her likely length of stay is 5-7 days. Coding Level of Care Code Acute Code for [facility] Fwd Diagnoses Psychosis F29 Methamphetamine use disorder, severe F15.20
[2023-05-03 20:19] VITALS: BP 127/79; PULSE 107; RESP 16; TEMP 37.1; O2SAT 98
[2023-05-04 06:00] VITALS: BP 111/76; PULSE 102; RESP 18; TEMP 36.6; O2SAT 98
[2023-05-04] MEDS: ARIPiprazole 10 mg Tablet 20 MG PO (08:49)
--- NOTE | 2023-05-04 10:52 | NPU.GN ---
[facility] Group Topic: Motivation General Mood of Group attended group, participated by asking questions and giving examples of positive affirmations. Patient wrote her positive affirmations down on ledger paper to put on her door.
--- NOTE | 2023-05-04 12:22 | P.NPUPN_ITS ---
Subjective NPU Subjective: Patient is a 33-year-old -[place] female admitted with active delusions possibly in the context of the use of methamphetamine who remains on Abilify at this time. She reported no side effects from her medication. She had attended groups. She reported that the medication had been helpful for her thoughts. She had reported adequate sleep. She had reported no side effects from her medication. She had reported no feelings of hopelessness. She reported good motivation. She had reported that she was working on a plan to return to work when she goes home. Mental Status Exam MSE Comments: This is an overweight -[place] female, in hospital scrubs, with improved grooming and good eye contact.. No abnormal movements with no psychomotor agitation or psychomotor retardation appreciated. She was pleasant during the interview and less guarded. Speech was normal in rate and normal in volume. Mood described as good. Her affect was euthymic. Thought process was more l inear and logical. Thought content: patient denied any suicidal or homicidal ideation; there was diminished grandiosity noted. . She was alert and oriented times three. Insight is improving. Her judgment is fair. Her impulse control is improving. Vitals/I&O/Wt Last Vital Signs Temp 97.8 F 05/04/23 06:00 Pulse 102 H 05/04/23 06:00 Resp 18 05/04/23 06:00 BP 111/76 05/04/23 06:00 Pulse Ox 98 05/04/23 06:00 O2 Del Method Room Air 05/02/23 14:00 Weight last 48 hrs Weight 76.566 kg A&P Assessment and plan (1) Psychosis: (2) Methamphetamine use disorder, severe: Plan This is a 33-year-old -[place] female who presents denying any issues but is unkempt, with obvious thought blocking and psychosis without any helpful history from her but UDS positive for cannabis and amphetamines and reports of addiction issues via mother at outside hospital. 1. Continue current medication. Continue Abilify at 20 mg daily. Patient continues to show some progress with less overt delusions and diminished gran diosity noted. Patient continuing to refuse the IM abilify at this time. 2. Encourage individual, group, and milieu therapy. 3. Continue q-15-minute checks for safety. 4. Recommend sober living treatment at the highest level of care to which the patient is willing to commit. 5. Patient on 21-day hold currently. 6. Digital therapeutic application for treatment of methamphetamine dependence. Involuntary Hold Information 96 Hour Hold: 96 Hour Involuntary Admission: Yes 96 Hour Hold Ending Date: 04/25/23 96 Hour Hold Ending Time: 20:10 Attestations NPU Medical Necessity Statement*: Inpatient hospitalization is medically necessary and the clinically appropriate intervention, at this time. We will monitor medications and make changes as indicated. Her likely length of stay is 5-7 days. Coding Level of Care Code Acute Code for [facility] Diagnoses Psychosis F29 Methamphetamine use disorder, severe F15.20
[2023-05-04 13:32] VITALS: BP 123/80; PULSE 93; RESP 17; TEMP 36.6; O2SAT 100
[2023-05-04 19:39] VITALS: BP 132/81; PULSE 114; RESP 18; TEMP 36.9; O2SAT 98
[2023-05-05 06:00] VITALS: BP 136/82; PULSE 89; RESP 18; O2SAT 99
[2023-05-05] MEDS: ARIPiprazole 10 mg Tablet 20 MG PO (09:15)
[2023-05-05] MEDS: nicotine 2 mg Gum BUCCAL (13:26)
[2023-05-05 14:00] VITALS: BP 112/55; PULSE 100; RESP 16; TEMP 37.1; O2SAT 99
--- NOTE | 2023-05-05 15:04 | P.NPUPN_ITS ---
Subjective NPU Subjective: Patient is a 33-year-old -[place]oc[place] female admitted with active delusions possibly in the context of the use of methamphetamine who remains on Abilify at this time. The patient reported that she wished to consider going home soon. She stated that she had a ride waiting for her. She had stated that she did not wish to consider substance abuse treatment on inpatient basis. She had minimized the use of methamphetamine. She had reported that she had felt blessed and was agreeable to taking oral medications when stabilized. She reported good energy and adequate sleep. She did not require any redirection on the milieu. She had been appropriately engaged in self-care over the last few days without prompting. Mental Status Exam MSE Comments: This is an overweight -[place]oc[place] female, in hospital scrubs, with improved grooming and good eye contact.. No abnormal movements with no psychomotor agitation or psychomotor retardation appreciated. She was pleasant during the interview and less guarded. Speech was normal in rate and normal in volume. Mood described as better. Her affect was euthymic. Thought process was more linear and logical. Thought content: patient denied any suicidal or homicidal ideation; there was diminished grandiosity noted but still the presence of overvalued ideas. She was alert and oriented times three. Insight is improving. Her judgment is fair. Her impulse control is improving. Vitals/I&O/Wt Last Vital Signs Temp 98.7 F 05/05/23 14:00 Pulse 100 05/05/23 14:00 Resp 16 05/05/23 14:00 BP 112/55 05/05/23 14:00 Pulse Ox 99 05/05/23 14:00 O2 Del Method Room Air 05/05/23 14:00 Weight last 48 hrs Weight 76.566 kg A&P Assessment and plan (1) Psychosis: (2) Methamphetamine use disorder, severe: Plan This is a 33-year-old -[place]oc[place] female who presents denying any issues but is unkempt, with obvious thought blocking and psychosis without any helpful history from her but UDS positive for cannabis and amphetamines and reports of addiction issues via mother at outside hospital. 1. Continue current medication. Continue Abilify at 20 mg daily. Patient continues to show some progress with less overt delusions and diminished grandiosity noted. Abilify 400mg IM given today. 2. Encourage individual, group, and milieu therapy. 3. Continue q-15-minute checks for safety. 4. Recommend sober living treatment at the highest level of care to which the patient is willing to commit. 5. Patient on 21-day hold currently. 6. Digital therapeutic application for treatment of methamphetamine dependence. Involuntary Hold Information 96 Hour Hold: 96 Hour Involuntary Admission: Yes 96 Hour Hold Ending Date: 04/25/23 96 Hour Hold Ending Time: 20:10 Attestations NPU Medical Necessity Statement*: Inpatient hospitalization is medically necessary and the clinically appropriate intervention, at this time. We will monitor medications and make changes as indicated. Her likely length of stay is 2-3 days. Coding Level of Care Code Acute Code for [facility] Diagnoses Psychosis F29 Methamphetamine use disorder, severe F15.20
[2023-05-05] MEDS: ARIPiprazole Maintena 400 MG IM (15:33)
--- NOTE | 2023-05-05 15:34 | PC.NURSE ---
Abilify Maintena 400mg IM Administered Abilify injection 400mg to patient's right deltoid muscle. Injection was tolerated well by the patient. No adverse reactions. Will continue to monitor. Lot:[id number] exp: Sep 2025
[2023-05-05 19:37] VITALS: BP 132/76; PULSE 103; RESP 18; TEMP 37; O2SAT 95
[2023-05-06 06:00] VITALS: BP 124/69; PULSE 104; RESP 16; TEMP 37; O2SAT 100
[2023-05-06] MEDS: ARIPiprazole 10 mg Tablet 20 MG PO (08:09)
[2023-05-06 14:00] VITALS: BP 105/79; PULSE 107; RESP 16; TEMP 36.6; O2SAT 100
--- NOTE | 2023-05-06 15:58 | W.PM.NPUPNS ---
Subjective NPU Subjective: Patient is a 33-year-old -Malag[place] female admitted with active delusions possibly in the context of the use of methamphetamine who remains on Abilify at this time. The patient reported no side effects from her medication. She had stated that she did not wish to currently go back to [place] but would like to be placed in a fdc locally. She stated that she would wait for her sister to come pick her up if she wished to in order to go to [place]. She reported no side effects from her intramuscular injection of Abilify. She had continue to minimize the significance of her methamphetamine abuse and how it may have affected her mood and her hospitalization length. Mental Status Exam MSE Comments: This is an overweight -Malagasy female, in hospital scrubs, with improved grooming and good eye contact.. No abnormal movements with no psychomotor agitation or psychomotor retardation appreciated. She was pleasant during the interview and less guarded. Speech was normal in rate and normal in volume. Mood described as good her affect was euthymic. Thought process was more linear and logical. Thought content: patient denied any suicidal or homicidal ideation; there was less grandiosity noted with no ideas of reference. She was alert and oriented times three. Insight is improving. Her judgment is fair. Her impulse control is improving. Vitals/I&O/Wt Last Vital Signs Temp 98 F 05/06/23 14:00 Pulse 107 H 05/06/23 14:00 Resp 16 05/06/23 14:00 BP 105/79 05/06/23 14:00 Pulse Ox 100 05/06/23 14:00 O2 Del Method Room Air 05/06/23 14:00 A&P Assessment and plan (1) Psychosis: (2) Methamphetamine use disorder, severe: Plan This is a 33-year-old -Malag[place] female who presents denying any issues but is unkempt, with obvious thought blocking and psychosis without any helpful history from her but UDS positive for cannabis and amphetamines and reports of addiction issues via mother at outside hospital. 1. Continue current medication. Continue Abilify at 20 mg daily. Patient continues to show some progress with less overt delusions and diminished grandiosity noted. Abilify 400mg IM given on 05/05/23 2. Encourage individual, group, and milieu therapy. 3. Continue q-15-minute checks for safety. 4. Recommend sober living treatment at the highest level of care to which the patient is willing to commit. 5. Patient on 21-day hold currently. 6. Digital therapeutic application for treatment of methamphetamine dependence. Discharge tommorow. Involuntary Hold Information 96 Hour Hold: 96 Hour Involuntary Admission: Yes 96 Hour Hold Ending Date: 04/25/23 96 Hour Hold Ending Time: 20:10 Attestations NPU Medical Necessity Statement*: Inpatient hospitalization is medically necessary and the clinically appropriate intervention, at this time. We will monitor medications and make changes as indicated. Her likely length of stay is 1-2 days Coding Level of Care Code Acute Code for [facility] Diagnoses Psychosis F29 Methamphetamine use disorder, severe F15.20
[2023-05-06 19:19] VITALS: BP 118/73; PULSE 106; RESP 17; TEMP 37.6; O2SAT 100
[2023-05-07 06:00] VITALS: BP 128/75; PULSE 109; RESP 18; TEMP 37; O2SAT 100
[2023-05-07] MEDS: ARIPiprazole 10 mg Tablet 20 MG PO (07:46)
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
[2023-05-07 09:05] VITALS: BP 128/75; PULSE 109; RESP 18; TEMP 37; O2SAT 100
== END 2023-05-07 11:35 | disposition home or self-care (01) | DRG 885 ==
PROVIDERS: Admitting Provider Psychiatry & Neurology Psychiatry; Visit Provider Psychiatry & Neurology Psychiatry
DX: F29 Unspecified psychosis not due to a substance or known physiological condition (principal); F15.20 Other stimulant dependence, uncomplicated
CPT/HCPCS: 96372; 97150; 97165; 99238